=== PATIENT | female | born 1985 | race Two or more races ===

== ENCOUNTER 2017-08-28 20:02 | Inpatient (IN) | payer BC ==
[2017-08-28] MEDS ORDERED: Ampicillin 2 GM in Sodium Chloride 0.9% 100 ML IV ONE (21:00)
[2017-08-28] MEDS ORDERED: Ondansetron 4 MG/2 ML SDV IVPUSH PRN (21:15)
[2017-08-28] MEDS ORDERED: Sodium Chloride 0.9% 10 ML Syringe FLUSH PRN (21:15)
[2017-08-28] MEDS ORDERED: Lidocaine 1% 50 ML MDV INJECT ONE (21:15)
[2017-08-28] MEDS ORDERED: Nalbuphine 20 MG/ML 1 ML Syringe IVPUSH PRN (21:15)
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
[2017-08-28] MEDS: Lactated Ringers 1,000 ML IV SCH (22:11)
[2017-08-29] MEDS: Ampicillin 1 GM in Sodium Chloride 0.9% 100 ML IV SCH ×5 (02:36→17:33)
[2017-08-29] MEDS ORDERED: fentaNYL 100 MCG/2 ML SDV EPIDUR PRN (08:10)
[2017-08-29] MEDS ORDERED: ePHEDrine 50 MG/ML SDV IVPUSH PRN (08:10)
[2017-08-29] MEDS ORDERED: diphenhydrAMINE 50 MG/ML SDV IVPUSH PRN (08:10)
[2017-08-29] MEDS ORDERED: Ondansetron 4 MG/2 ML SDV IVPUSH PRN (08:10)
[2017-08-29] MEDS ORDERED: fentaNYL 100 MCG/2 ML SDV ONE ×2 (08:14→12:36)
[2017-08-29] MEDS ORDERED: Bupivacaine/fentaNYL/NS 100 ML Bag EPIDUR SCH (08:15)
[2017-08-29] MEDS: Lactated Ringers 1,000 ML IV SCH ×2 (08:19→16:15)
--- NOTE | 2017-08-29 09:41 | PCM.PREANE ---
Preanesthetic Assessment - Anesthesia/Transfusion/Family Hx Anesthesia History: Prior Anesthesia Without Reaction Family History of Anesthesia Reaction: No Transfusion History: No Prior Transfusion(s) - Review of Systems General: No Symptoms Pulmonary: No Symptoms Cardiovascular: No Symptoms Gastrointestinal: No Symptoms Neurological: No Symptoms Other: Reports: None - Physical Assessment Pulse: 90 O2 Sat by Pulse Oximetry: 97 Respiratory Rate: 16 Blood Pressure: 125/77 Vital Signs: Last Vital Signs Temp 36.7 C 08/28/17 20:37 Pulse 90 08/28/17 20:37 Resp 16 08/28/17 20:37 BP 125/77 08/28/17 20:37 Pulse Ox 97 08/28/17 20:37 Height: 1.75 m Weight: 89.993 kg ASA Class: 2 Mental Status: Alert & Oriented x3 Airway Class: Mallampati = 1 Dentition: Reports: Normal Dentition Thyro-Mental Finger Breadths: 3 Mouth Opening Finger Breadths: 3 ROM/Head Extension: Full Lungs: Clear to Auscultation, Normal Respiratory Effort Cardiovascular: Regular Rate, Regular Rhythm - Lab Values: Laboratory Last Values WBC 14.59 K/mm3 (3.98-10.04) H 08/29/17 07:30 RBC 4.11 M/mm3 (3.98-5.22) 08/29/17 07:30 Hgb 11.1 gm/L (11.2-15.7) L 08/29/17 07:30 Hct 33.4 % (34.1-44.9) L 08/29/17 07:30 MCV 81.3 fl (79.4-94.8) 08/29/17 07:30 MCH 27.0 pg (25.6-32.2) 08/29/17 07:30 MCHC 33.2 g/dl (32.2-35.5) 08/29/17 07:30 RDW Std Deviation 39.7 fL (36.4-46.3) 08/29/17 07:30 Plt Count 172 K/mm3 (182-369) L 08/29/17 07:30 MPV 10.9 fl (9.4-12.3) 08/29/17 07:30 Neut % (Auto) 89.5 % (34.0-71.1) H 08/29/17 07:30 Lymph % (Auto) 6.2 % (19.3-51.7) L 08/29/17 07:30 [place] % (Auto) 3.8 % (4.7-12.5) L 08/29/17 07:30 Eos % (Auto) 0.1 (0.7-5.8) L 08/29/17 07:30 Baso % (Auto) 0.1 % (0.1-1.2) 08/29/17 07:30 Neut # (Auto) 13.06 K/mm3 (1.56-6.13) H 08/29/17 07:30 Lymph # (Auto) 0.91 K/mm3 (1.18-3.74) L 08/29/17 07:30 [place] # (Auto) 0.56 K/mm3 (0.24-0.36) H 08/29/17 07:30 Eos # (Auto) 0.01 K/mm3 (0.04-0.36) L 08/29/17 07:30 Baso # (Auto) 0.01 K/mm3 (0.01-0.08) 08/29/17 07:30 Manual Slide Review Abnormal smear 08/29/17 07:30 - Allergies Allergies/Adverse Reactions: Allergies Allergy/AdvReac Type Severity Reaction Status Date / Time No Known Allergies Allergy Verified 08/28/17 21:30 - Acknowledgements Anesthesia Type Planned: Epidural Pt an Appropriate Candidate for the Planned Anesthesia: Yes Alternatives and Risks of Anesthesia Discussed w Pt/Guardian: Yes Pt/Guardian Understands and Agrees with Anesthesia Plan: Yes 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 Other OB/BYN History: X2 - SUBSTANCE USE Smoking Status *Q: Never Smoker Second Hand Smoke Exposure: No Recreational Drug Use History: No - CURRENT (IN HOUSE) MEDS Current Meds: Current Medications Diphenhydramine HCl (Benadryl) 25 mg IVPUSH Q6H PRN PRN Reason: Pruritis Ephedrine Sulfate (Ephedrine Sulfate) 5 mg IVPUSH ASDIRECTED PRN PRN Reason: Hypotension Fentanyl (Sublimaze) 100 mcg EPIDUR ONETIME PRN PRN Reason: Pain Last Admin: 08/29/17 08:40 Dose: 100 mcg Fentanyl/Bupivacaine HCl (Fentanyl/Bupivacaine/Ns 2 Mcg-0.125% 100 Ml) 100 ml EPIDUR ASDIRECTED [facility] Last Admin: 08/29/17 08:43 Dose: 100 ml Ampicillin Sodium 1 gm/ Sodium (Chloride) 100 mls @ 200 mls/hr IV Q4H [facility] Last Admin: 08/29/17 09:40 Dose: 200 mls/hr Lactated Ringer's (Ringers, Lactated) 1,000 mls @ 100 mls/hr IV ASDIRECTED [facility] Last Admin: 08/29/17 08:19 Dose: 100 mls/hr Nalbuphine HCl (Nubain) 10 mg IVPUSH Q2H PRN PRN Reason: Pain (moderate 4-6) Ondansetron HCl (Zofran) 4 mg IVPUSH Q4H PRN PRN Reason: Nausea/Vomiting Ondansetron HCl (Zofran) 4 mg IVPUSH ONETIME PRN PRN Reason: Nausea/Vomiting Sodium Chloride (Saline Flush) 10 ml FLUSH ASDIRECTED PRN PRN Reason: Keep Vein Open Discontinued Medications Fentanyl (Sublimaze) Confirm Administered Dose 100 mcg .ROUTE .STK-MED ONE Stop: 08/29/17 08:15 Ampicillin Sodium 2 gm/ Sodium (Chloride) 100 mls @ 200 mls/hr IV ONETIME ONE Stop: 08/28/17 21:29 Last Admin: 08/28/17 22:11 Dose: 200 mls/hr Lidocaine HCl (Xylocaine 1%) 10 ml INJECT ONETIME ONE Stop: 08/28/17 21:16
[2017-08-29] MEDS ORDERED: Oxytocin/Lactated Ringers 10 UNIT/1,000 ML BAG IV ONE (14:20)
[2017-08-29] MEDS ORDERED: Oxytocin/Lactated Ringers 10 UNIT/1,000 ML BAG IV SCH (15:45)
--- NOTE | 2017-08-29 19:10 | PCM.SN ---
- Free Text/Narrative Note: Delivery note: Raysa is a 32-year-old 1 now para 1001 female at 40-0/7 gestational age with an TAMMY of 08/29/2017 was admitted on the evening of 08/28/2017 with reported/confirmed spontaneous rupture membranes. Membranes had ruptured at approximately 1530 hrs with resultant clear amniotic fluid on 08/28/2017. Upon admission patient was guillermina minimally. heart tones and clinical vital signs were normal. These contractions picked up steadily and patient was in a very active labor by approximately 2300 hrs. Patient progressed steadily towards complete cervical dilation which she achieved at approximately 1720 hrs. She delivered a viable, damian, male with Apgars of 8 and 9, a weight of 3270 grams (7 pounds, 3.3 ounces), length of 21.0 inches via vacuum extraction delivery in a right occiput anterior position. Vacuum extractor was applied per protocol and with one continuous push the patient delivered the baby 's head. No vacuum pop offs were noted. Patient had a first-degree laceration which was repaired with 3-0 Monocryl in a routine fashion. Baby was placed on mom's abdomen and per patient request the cord was left intact until the placenta delivered. At this time the cord was clamped 2 by myself and was cut by the baby's father. Cord blood was obtained from the placental site of the cord. The placenta delivered in a Anderson presentation, appeared complete and intact and was discarded per patient desire. Ministered after delivery of the baby to facilitate increase in uterine tone and decrease likelihood of bleeding. Epidural was used for labor analgesia and for repair of the perineal laceration. Estimated blood loss was 100 mL. Complications none. Patient plans to breast-feed. Condition: Good
[2017-08-29] MEDS ORDERED: Lanolin 100% Cream 7 GM Tube TOP PRN (19:11)
[2017-08-29] MEDS ORDERED: Witch Hazel Medicated Pads 100/Jar TOP PRN (19:11)
[2017-08-29] MEDS ORDERED: Acetaminophen 325 MG Tab PO PRN (19:11)
[2017-08-29] MEDS ORDERED: Benzocaine/Menthol 20%-0.5% Spray 56 GM Canister TOP PRN (19:11)
[2017-08-29] MEDS: Ibuprofen 600 MG Tab PO PRN (21:33)
[2017-08-29] MEDS ORDERED: Bupivacaine 0.25% 10 ML SDV ONE (22:00)
[2017-08-30] MEDS: Ibuprofen 600 MG Tab PO PRN ×2 (02:36→06:33)
--- NOTE | 2017-08-30 06:57 | PCM.DCSUM1 ---
Discharge Summary - Hospital Course Free Text/Narrative:: Raysa is a 32-year-old 1 now para 1001 female at 40-0/7 gestational age with an TAMMY of 08/29/2017 was admitted on the evening of 08/28/2017 with reported/confirmed spontaneous rupture membranes. Membranes had ruptured at approximately 1530 hrs with resultant clear amniotic fluid on 08/28/2017. Upon admission patient was guillermina minimally. heart tones and clinical vital signs were normal. These contractions picked up steadily and patient was in a very active labor by approximately 2300 hrs. Patient progressed steadily towards complete cervical dilation which she achieved at approximately 1720 hrs. She delivered a viable, damian, male with Apgars of 8 and 9, a weight of 3270 grams (7 pounds, 3.3 ounces), length of 21.0 inches via vacuum extraction delivery in a right occiput anterior position. Vacuum extractor was applied per protocol and with one continuous push the patient delivered the baby 's head. No vacuum pop offs were noted. Patient had a first-degree laceration which was repaired with 3-0 Monocryl in a routine fashion. Baby was placed on mom's abdomen and per patient request the cord was left intact until the placenta delivered. At this time the cord was clamped 2 by myself and was cut by the baby's father. Cord blood was obtained from the placental site of the cord. The placenta delivered in a Anderson presentation, appeared complete and intact and was discarded per patient desire. Ministered after delivery of the baby to facilitate increase in uterine tone and decrease likelihood of bleeding. Epidural was used for labor analgesia and for repair of the perineal laceration. Estimated blood loss was 100 mL. Complications none. Patient plans to breast-feed. patient is doing well. She is nursing without problems and desires to go home at 24 hours from the time of delivery. Vital signs stable, bleeding is minimal and voiding is without concern. Condition is good. - Discharge Data Discharge Date: 08/30/17 Discharge Disposition: Home, Self-Care 01 Condition: Good - Patient Instructions Diet: Regular Diet as Tolerated (Increased calories and calcium as recommended) Activity: As Tolerated (No intercourse or tampons until bleeding resolves) Driving: Do Not Drive (2 days) Showering/Bathing: May Shower (May take a bath) Notify Provider of: Fever, Increased Pain, Swelling and Redness, Nausea and/or Vomiting - Discharge Plan Prescriptions/Med Rec: Ibuprofen [Motrin] 600 mg PO Q4H PRN #30 tablet PRN Reason: Mild pain or fever Home Medications: Home Meds Acetaminophen [Tylenol] 650 mg PO Q4H PRN tablet 08/30/17 [Rx] Ibuprofen [Motrin] 600 mg PO Q4H PRN #30 tablet 08/30/17 [Rx] Referrals: Miguel Ángel Armijo MD [Primary Care Provider] - (Return to clinicDr. Armijo2 weeks.) - Discharge Summary/Plan Comment DC Time >30 min.: No Discharge Summary/Plan Comment: Discharge instructions: 1. Discharge home 2. Diet, activity and follow-up discussed with patient. Recommend nursing diet with increased calories and calcium. 3. Precautions given concern increased pain, bleeding, temperature, signs/ symptoms of DVT/PE. 4. Medications per home medication was printed, discussed with and given to the patient. 5. Return to clinic-Dr. Armijo[facility] in 2 weeks. Diagnosis: Term -delivered Condition: Good - Patient Data Vitals - Most Recent: Last Vital Signs Temp 36.7 C 08/28/17 20:37 Pulse 76 08/29/17 20:30 Resp 16 08/29/17 09:41 BP 101/59 L 08/29/17 20:30 Pulse Ox 97 08/29/17 09:41 Weight - Most Recent: 89.993 kg I&O - Last 24 hours: Intake & Output 08/29/17 08/29/17 08/30/17 14:59 22:59 06:59 Output Total 1100 Balance -1100 Lab Results - Last 24 hrs: Laboratory Results - last 24 hr 08/29/17 Range/Units 07:30 WBC 14.59 H (3.98-10.04) K/mm3 RBC 4.11 (3.98-5.22) M/mm3 Hgb 11.1 L (11.2-15.7) gm/L Hct 33.4 L (34.1-44.9) % MCV 81.3 (79.4-94.8) fl MCH 27.0 (25.6-32.2) pg MCHC 33.2 (32.2-35.5) g/dl RDW Std Deviation 39.7 (36.4-46.3) fL Plt Count 172 L (182-369) K/mm3 MPV 10.9 (9.4-12.3) fl Neut % (Auto) 89.5 H (34.0-71.1) % Lymph % (Auto) 6.2 L (19.3-51.7) % [place] % (Auto) 3.8 L (4.7-12.5) % Eos % (Auto) 0.1 L (0.7-5.8) Baso % (Auto) 0.1 (0.1-1.2) % Neut # (Auto) 13.06 H (1.56-6.13) K/mm3 Lymph # (Auto) 0.91 L (1.18-3.74) K/mm3 [place] # (Auto) 0.56 H (0.24-0.36) K/mm3 Eos # (Auto) 0.01 L (0.04-0.36) K/mm3 Baso # (Auto) 0.01 (0.01-0.08) K/mm3 Manual Slide Review Abnormal smear Med Orders - Current: Current Medications Acetaminophen (Tylenol) 650 mg PO Q4H PRN PRN Reason: mild pain or fever Benzocaine/Menthol (Dermoplast Pain Relief Circle) 0 gm TOP ASDIRECTED PRN PRN Reason: Perineal Comfort Measure Last Admin: 08/29/17 21:35 Dose: 1 can Emollient Ointment (Lansinoh Hpa) 0 gm TOP ASDIRECTED PRN PRN Reason: Sore Nipples Ibuprofen (Motrin) 600 mg PO Q4H PRN PRN Reason: Mild pain or fever Last Admin: 08/30/17 06:33 Dose: 600 mg Witch Lizz (Tucks) 1 pad TOP ASDIRECTED PRN PRN Reason: Hemorrhoid pain Last Admin: 08/29/17 21:35 Dose: 1 canister Discontinued Medications Diphenhydramine HCl (Benadryl) 25 mg IVPUSH Q6H PRN PRN Reason: Pruritis Ephedrine Sulfate (Ephedrine Sulfate) 5 mg IVPUSH ASDIRECTED PRN PRN Reason: Hypotension Fentanyl (Sublimaze) 100 mcg EPIDUR ONETIME PRN PRN Reason: Pain Last Admin: 08/29/17 08:40 Dose: 100 mcg Fentanyl (Sublimaze) Confirm Administered Dose 100 mcg .ROUTE .STK-MED ONE Stop: 08/29/17 08:15 Last Admin: 08/29/17 23:19 Dose: Not Given Fentanyl (Sublimaze) Confirm Administered Dose 100 mcg .ROUTE .STK-MED ONE Stop: 08/29/17 12:37 Last Admin: 08/29/17 12:41 Dose: 100 mcg Fentanyl/Bupivacaine HCl (Fentanyl/Bupivacaine/Ns 2 Mcg-0.125% 100 Ml) 100 ml EPIDUR ASDIRECTED [facility] Last Admin: 08/29/17 08:43 Dose: 100 ml Ampicillin Sodium 2 gm/ Sodium (Chloride) 100 mls @ 200 mls/hr IV ONETIME ONE Stop: 08/28/17 21:29 Last Admin: 08/28/17 22:11 Dose: 200 mls/hr Ampicillin Sodium 1 gm/ Sodium (Chloride) 100 mls @ 200 mls/hr IV Q4H [facility] Last Admin: 08/29/17 17:33 Dose: 200 mls/hr Lactated Ringer's (Ringers, Lactated) 1,000 mls @ 100 mls/hr IV ASDIRECTED [facility] Last Admin: 08/29/17 16:15 Dose: 100 mls/hr Oxytocin/Lactated Ringer's (Pitocin In Lr 10 Units/1,000 Ml) Confirm Administered Dose 10 unit in 1,000 mls @ as directed IV .STK-MED ONE Stop: 08/29/17 14:21 Last Admin: 08/29/17 23:19 Dose: Not Given Oxytocin/Lactated Ringer's (Pitocin In Lr 10 Units/1,000 Ml) 10 unit in 1,000 mls @ 12 mls/hr IV TITRATE [facility]; Protocol Last Titration: 08/29/17 17:08 Dose: 8 munits/min, 48 mls/hr Lidocaine HCl (Xylocaine 1%) 10 ml INJECT ONETIME ONE Stop: 08/28/17 21:16 Last Admin: 08/29/17 23:19 Dose: Not Given Nalbuphine HCl (Nubain) 10 mg IVPUSH Q2H PRN PRN Reason: Pain (moderate 4-6) Ondansetron HCl (Zofran) 4 mg IVPUSH Q4H PRN PRN Reason: Nausea/Vomiting Ondansetron HCl (Zofran) 4 mg IVPUSH ONETIME PRN PRN Reason: Nausea/Vomiting Sodium Chloride (Saline Flush) 10 ml FLUSH ASDIRECTED PRN PRN Reason: Keep Vein Open
--- NOTE | 2017-08-30 07:23 | PCM48HPAN ---
Post Anesthesia Note - EVALUATION WITHIN 48HRS OF ANESTHETIC Vital Signs in Normal Range: Yes Patient Participated in Evaluation: Yes Respiratory Function Stable: Yes Airway Patent: Yes Cardiovascular Function Stable: Yes Hydration Status Stable: Yes Pain Control Satisfactory: Yes Nausea and Vomiting Control Satisfactory: Yes Mental Status Recovered: Yes Pulse Rate: 76 Resp Rate: 16 Blood Pressure: 101/59
== END 2017-08-30 22:40 | disposition home or self-care (01) | DRG 560 ==
LOC: JD.OBCHECK 20:02 → JD.OB 20:05 → JD.OBCHECK 21:15 → JD.OB 21:16 → OBSVTOIN 08-29 18:31 → JD.OB 08-29 18:31
PROVIDERS: ADMIT Obstetrics & Gynecology; ATTEND Obstetrics & Gynecology
PROC: 10D07Z6 Extraction of Products of Conception, Vacuum, Via Natural or Artificial Opening (ICD-10-PCS; principal; 2017-08-29)
PROC: 0HQ9XZZ Repair Perineum Skin, External Approach (ICD-10-PCS; 2017-08-29)
PROC: 6A550ZT Pheresis of Cord Blood Stem Cells, Single (ICD-10-PCS; 2017-08-29)
PROC: 00HU33Z Insertion of Infusion Device into Spinal Canal, Percutaneous Approach (ICD-10-PCS; 2017-08-29)
PROC: 3E0R3BZ Introduction of Anesthetic Agent into Spinal Canal, Percutaneous Approach (ICD-10-PCS; 2017-08-29)
DX: O99.824 Streptococcus B carrier state complicating childbirth (principal); O70.0 First degree perineal laceration during delivery; Z3A.39 39 weeks gestation of pregnancy; Z37.0 Single live birth
CPT/HCPCS: 36415; 51701; 51702; 59025; 59300; 59409; 85025; 85027; A9270-GY; J0290; J2590; J3010; J7030; J7120